=== PATIENT | female | born 1970 ===

== ENCOUNTER 2016-11-01 21:34 | Emergency (ER) | payer SELFPAY | END 2016-11-01 22:46 | disposition home or self-care (01) | LOC: D.ER 21:34 | DX: S80.862A Insect bite (nonvenomous), left lower leg, initial encounter (principal); W57.XXXA Bitten or stung by nonvenomous insect and other nonvenomous arthropods, initial encounter; Y93.89 Activity, other specified; Y92.89 Other specified places as the place of occurrence of the external cause; F17.200 Nicotine dependence, unspecified, uncomplicated ==